=== PATIENT | female | born 1960 | race Caucasian/White ===

== ENCOUNTER 2018-05-15 14:17 | Outpatient (CLI) | payer BC, SELFPAY ==
--- NOTE | 2018-05-15 09:07 | DI.RAD_ITS ---
SYMPTOMS/DIAGNOSIS: LEFT HIP PAIN, ? DJD AP PELVIS: The frontal image reveals bilateral hip DJD, most advanced on the left side. There are also degenerative changes involving the SI joints and lower lumbar spine. There is no evidence of a fracture or dislocation.
== END 2018-05-15 14:37 ==
PROVIDERS: PCP Family Medicine; Visit Provider Orthopaedic Surgery
DX: M25.552 Pain in left hip (principal); M16.0 Bilateral primary osteoarthritis of hip
CPT/HCPCS: 72170

== ENCOUNTER 2018-05-22 01:10 | Outpatient (CLI) | payer BC, SELFPAY ==
--- NOTE | 2018-05-22 07:20 | DI.RAD_ITS ---
SYMPTOMS/DIAGNOSIS: DEGENERATIVE JOINT DISEASE, LEFT HIP, LEFT HIP PAIN, M16.12 , M25.552, UNILATERAL OSTEOARTHRITIS LEFT HIP FLUOROSCOPY: Fluoroscopy Time: 3 sec Fluoroscopy was provided for Dr. Lopez for guidance with left hip injection. A single hard copy image shows a needle projecting from the lateral aspect to the femoral neck region. Advanced degenerative changes are also noted. Please see procedure note for details.
--- NOTE | 2018-05-22 15:43 | ROE_ITS ---
DATE OF PROCEDURE: May 22, 2018 PRE-PROCEDURE DIAGNOSIS: Left hip pain, probably secondary to early degenerative arthritis left hip. POST-PROCEDURE DIAGNOSIS: Same. PROCEDURE: Injection of the left hip joint under fluoroscopy for diagnostic confirmation and for jacque n control. SURGEON: Inocencio Lopez M.D. [employer] SUPERVISOR: X-ray tech. INDICATIONS: This patient was seen by me in the office a week ago. She was complaining of left hip pain. She was having some difficulty putting her shoes and socks on on the left side and also clippi ng her own toenails, but she was able to accomplish that by placing her foot on a stool. X-rays in t he office showed narrowing of the joint space between the superior aspect of the left femoral head an d the acetabulum. There were some degenerative changes also noted on the right side but not as sever e. I felt that the majority of her symptoms are probably coming from arthritis of the left hip joint . I did not see any evidence of avascular necrosis on the radiographs to explain her symptoms. I re commended diagnostic/therapeutic injection under fluoroscopy to see if this could help with her sympt omatology and also verify that the source of her pain was coming from the hip joint. I re-reviewed t he planned procedure with the patient in the fluoroscopy suite. She understood and wished to proceed . PROCEDURE: She was placed in the supine position on the fluoroscopic table. The anterolateral aspec t of her thigh was prepped with ChloraPrep. 1% Lidocaine was then used to create an anesthetic wheal over the anterolateral thigh. Under fluoroscopic control, a 6-inch, 22 gauge spinal needle was inse rted into the left hip joint. The needle could be felt to penetrate the capsule and hit the femoral head. I then injected the hip joint with 5 cc's of 0.5% Marcaine and 80 mg of Depo-Medrol. The chadd ent noted immediate reduction in her pain. I caution her on a localized steroid reaction and I want her to pay attention to her symptomatology for the next five to twelve hours while the Marcaine is in effect. If she notices significant improvement in her overall function, then I think she would bene fit from a total hip arthroplasty; but the patient understands that this would have to be delayed for three months because there is an increased risk for infection in the initial three months following injection of the hip joint with a steroid. She tolerated the procedure well with no untoward side ef fects. She was able to put on her boot without any discomfort. She will contact the office in 48 to 72 hours and let me know how things are going. She is advised that if she does get some pain in the joint, this should respond to ibuprofen or Aleve or Tylenol and ice. Within 48 hours the steroid sh ould take effect and she should then notice again resumption of improved pain control.
== END 2018-05-22 01:30 ==
PROVIDERS: PCP Family Medicine; Visit Provider Orthopaedic Surgery
DX: M25.552 Pain in left hip (principal); M16.12 Unilateral primary osteoarthritis, left hip
CPT/HCPCS: 77002; 20610

== ENCOUNTER 2019-04-02 02:07 | Outpatient (CLI) | payer BC, SELFPAY ==
[2019-04-02 08:48] LABS: ALT 31 U/L (14-59); AST 20 U/L (15-37); Albumin 3.7 g/dL (3.4-5.0); Alkaline Phosphatase 114 U/L (46-116); Anion Gap 8.1 mmol/L (3-11); BUN 17 mg/dL (7-18); Bilirubin, Total 0.6 mg/dL (0.2-1.0); CO2 27.9 mmol/L (21.0-32.0); CREATININE 0.74 mg/dL (0.55-1.02); Calcium 8.6 mg/dL (8.5-10.1); Calculated LDL 118 mg/dL; Chloride 104 mmol/L (98-107); Cholesterol 203 mg/dL (50-200); Glucose 98 mg/dL (70-100); HDL Cholesterol 76 mg/dL (40-60); Potassium 4.2 mmol/L (3.5-5.1); Sodium 140 mmol/L (136-145); Triglyceride 47 mg/dL (30-150)
== END 2019-04-02 02:27 ==
PROVIDERS: PCP Family Medicine; Visit Provider Family Medicine
DX: E11.9 Type 2 diabetes mellitus without complications (principal)
CPT/HCPCS: 36415; 80053; 80061

== ENCOUNTER 2019-05-24 01:47 | Outpatient (CLI) | payer BC, SELFPAY ==
--- NOTE | 2019-05-24 11:07 | W.PROCNOTE ---
Date of service: 05/24/19 Time of Service: 11:07 Procedure Note Date of procedure: 05/24/19 Procedure: Left Hip Injection with Fluoroscopic Guidance Surgeon/Proceduralist/Physician: Michael Moctezuma Procedure Diagnosis: Left Hip Osteoarthritis Procedure Indications: Blossom has had persistent pain of the LEFT hip and groin. Noninvasive measures have been tried. To serve as both diagnostic and therapeutic, an injection under fluoroscopy was recommended. I had discussed the risks of the procedure and the patient elected to proceed. Procedure Description: Blossom was greeted in the flouroscopy room. The correct side was identified and the consent was reviewed with the patient and signed. The patient was then placed in the supine position on the fluoroscopy table. The LEFT hip was then prepped with Chloraprep. The anterolateral injection starting point was identiifed by bony landmarks and fluoroscopy. The skin and soft tissue in the tract of the injection was anesthetized with 1% Lidocaine. A spinal needle was then inserted deep into the hip joint at the level of the lateral femoral neck under fluoroscopic guidance. A small amount of Omnipaque solution was injected to confirm intraarticular placement. Once confirmed, the hip was injected with 6cc of 0.5% Bupivicaine and 80mg of Depo-Medrol. A bandaid was placed on the injection site. The patient tolerated the procedure well and noted improvement in pre-injection pain.
[2019-05-24] MEDS: Bupivacaine 0.5% Pres-Free 10 ML VIAL 6 ML IJ (11:19)
[2019-05-24] MEDS: Omnipaque 300 MG/ML 10 ML BTL IJ (11:20)
[2019-05-24] MEDS: methylPREDNISolone ACETATE 80 MG/ML VIAL IM (11:21)
--- NOTE | 2019-05-24 12:02 | DI.RAD_ITS ---
EXAM: RF JOINT INJECTION FLUORO GUID CLINICAL HISTORY: L HIP INJ UNDER FLUORO-PAIN, OA LT HIP, M16.12 TECHNIQUE: COMPARISON: No exams were available for comparison FINDINGS: Fluoroscopy was utilized by Dr. Moctezuma during left hip injection. Hard copy shows intra-articular injection of left hip IMPRESSION:
== END 2019-05-24 02:07 ==
PROVIDERS: PCP Family Medicine; Visit Provider Student in an Organized Health Care Education/Training Program
DX: M25.552 Pain in left hip (principal); M16.12 Unilateral primary osteoarthritis, left hip
CPT/HCPCS: 20610; 77002; J1040

== ENCOUNTER 2019-12-05 15:56 | Outpatient (CLI) | payer MEDICAID, SELFPAY ==
--- NOTE | 2019-12-05 09:00 | DI.RAD_ITS ---
EXAM: XR HIP LT COMPLETE AP PELVIS CLINICAL HISTORY: Left hip pain, pre-op. TECHNIQUE: 2D digital imaging was performed. COMPARISON: No exams were available for comparison FINDINGS: There are marked degenerative changes of the left hip characterized by loss of the superior joint spa ce, subchondral sclerosis and cysts and periarticular spurring. No acute fracture or dislocation is present. The bones are normally mineralized. The right hip is well maintained. Surgical clips are seen in the soft tissues of the pelvis. IMPRESSION: Marked osteoarthritis of the left hip. DATA REPOSITORY: RADIATION DOSE DELIVERED:
== END 2019-12-05 16:16 ==
PROVIDERS: PCP Family Medicine; Referring Provider Family Medicine; Visit Provider Physician Assistant Surgical
DX: M25.552 Pain in left hip (principal); M16.12 Unilateral primary osteoarthritis, left hip
CPT/HCPCS: 73502

== ENCOUNTER 2019-12-09 01:26 | Outpatient (CLI) | payer MEDICAID, SELFPAY ==
--- NOTE | 2019-12-09 13:30 | DI.MRI_ITS ---
EXAM: MR LOWER JOINT LT WO CLINICAL HISTORY: Left hip pain, abductor tendon weakness, primary OA of lt hip, M16.12. TECHNIQUE: Multiplanar multisequence MRI was performed. COMPARISON: CR XR HIP LT COMPLETE AP PELVIS from 12/05/2019 FINDINGS: There are severe degenerative changes of the left hip joint. There are multiple subchondral cysts on both sides of the joint. There is some collapse of the superior left femoral head. There is spurri ng at the lateral margin of the superior acetabulum. There is a small to moderate-sized left joint e ffusion. The right hip joint shows superior joint space narrowing and spurring at the superior aceta bulum. No right hip joint effusion is seen. The marrow signal of the right hip appears normal. The visualized portions of the SI joints as well as pubic symphysis are unremarkable. No tendon or musc le tear or bursal fluid is seen.There is symmetric generalized muscle atrophy. There is sigmoid div erticulosis. The bladder, uterus and ovaries are unremarkable. A surgical clip is seen in the low p quiana. IMPRESSION: Severe degenerative changes of the left hip with flattening of the femoral head and extensive subcho ndral cyst formation. DATA REPOSITORY:
== END 2019-12-09 01:46 ==
PROVIDERS: PCP Family Medicine; Visit Provider Student in an Organized Health Care Education/Training Program
DX: M25.552 Pain in left hip (principal); M16.12 Unilateral primary osteoarthritis, left hip; M71.352 Other bursal cyst, left hip
CPT/HCPCS: 73721

== ENCOUNTER 2019-12-17 01:06 | Outpatient (CLI) | payer MEDICAID, SELFPAY ==
[2019-12-17 08:54] LABS: Calculated LDL 138 mg/dL (<100); Cholesterol 229 mg/dL (<200); HDL Cholesterol 77 mg/dL (40-60); Triglyceride 72 mg/dL (<150)
== END 2019-12-17 01:26 ==
PROVIDERS: PCP Family Medicine; Visit Provider Family Medicine
DX: E11.9 Type 2 diabetes mellitus without complications (principal)
CPT/HCPCS: 36415; 80061

== ENCOUNTER 2019-12-24 01:31 | Outpatient (CLI) | payer MEDICAID, SELFPAY ==
--- NOTE | 2019-12-24 10:15 | DI.MAMMO_ITS ---
EXAM: MG MAMMO SCREENING CLINICAL HISTORY: screening, Z12.39 TECHNIQUE: Bilateral full field digital CC and MLO mammographic images were obtained with 3D tomosyn thesis and utilizing computer aided detection (CAD). COMPARISON: Available for comparison. FINDINGS: Masses/Architectural Distortion: None seen. Microcalcifications: No suspicious pleomorphic-type are seen. Skin Thickening/Nipple Retraction: None. IMPRESSION: 1. No significant interval change with no specific features of malignancy noted. 2. Unless there is more urgent need, screening mammography is recommended, as per [employer] guidelines. BI-RADS Category 1 - Negative Breast Density - Category B - Scattered areas of fibroglandular density A negative radiographic report should not delay biopsy if a dominant or clinically suspicious mass is present. Up to ten percent of cancers are not identified on mammography. A negative report may reinforce clinical impression. Adenosis and dense breasts may obscure an underlying neoplasm. False positive reports average 6 to 10%. Patient will receive a letter notifying them of these results.
== END 2019-12-24 01:51 ==
PROVIDERS: PCP Family Medicine; Visit Provider Family Medicine
DX: Z12.31 Encounter for screening mammogram for malignant neoplasm of breast (principal)
CPT/HCPCS: 77063; 77067

== ENCOUNTER 2020-01-10 03:03 | Outpatient (CLI) | payer MEDICAID, SELFPAY ==
[2020-01-10 09:47] LABS: HCT 39.1 % (36.0-46.0); Mean Corp. HGB Concentration 33.2 g/dL (32.0-36.0); Mean Corpuscular Hemoglobin 30.1 pg (27.0-33.0); Mean Corpuscular Volume 90.5 fL (80-95); Mean Platelet Volume 8.7 fL (8.0-11.0); Platelet Count 281 x1000/uL (130-400); RBC 4.32 m/cumm (4.00-5.20); RBC Distribution Width 13.1 % (11.7-14.6)
[2020-01-10 09:55] LABS: Anion Gap 9.3 mmol/L (3-11); BUN 18 mg/dL (7-18); CO2 27.7 mmol/L (21.0-32.0); CREATININE 0.81 mg/dL (0.55-1.02); Calcium 9.1 mg/dL (8.5-10.1); Chloride 102 mmol/L (98-107); Glucose 105 mg/dL (74-106); Potassium 4.3 mmol/L (3.5-5.1); Sodium 139 mmol/L (136-145)
[2020-01-12 17:23] LABS: COVID-19 RT-PCR Result NEGATIVE (Negative)
== END 2020-01-10 03:23 ==
PROVIDERS: PCP Family Medicine; Visit Provider Student in an Organized Health Care Education/Training Program
DX: M16.12 Unilateral primary osteoarthritis, left hip (principal); Z01.818 Encounter for other preprocedural examination; Z11.59 Encounter for screening for other viral diseases
CPT/HCPCS: 36415; 80048; 85027; 86850; 86900; 86901; U0003

== ENCOUNTER 2020-01-14 06:03 | Observation (INO) | payer MEDICAID, SELFPAY ==
--- NOTE | 2020-01-13 14:08 | INITIAL_ITS ---
- If Service Date Differs Date of service: 01/13/20 Time of Service: 14:09 Care Management Initial Assess REASON FOR HOSPITALIZATION:: Right hip anthroplasty. PAST MEDICAL HISTORY/PAST SURGICAL HISTORY:: Hyperlipidemia, primary osteoarthritis of left hip, primary osteoarthritis of right hip, primary osteoarthritis of right knee, insomnia, diabetes mellitus, and hypertension. PREVIOUS FUNCTIONAL STATUS/SOCIAL/FAMILY SUPPORTS:: Homero lives in [place] with her , Enrike. She has one cat but jokingly states he knows to stay away from her feet. Homero has 12 steps to get into her home but believes she will be able to negotiate them with the help of her . The plan is for Enrike to care for her while she recuperates from surgery. Homero is independent at baseline. CURRENT FUNCTIONAL STATUS:: CM contacts Homero by telephone to assess potential need for post-surgery services. ADVANCE DIRECTIVES:: None on file. Has patient been provided with info about the portal/API?: Yes Did the patient sign up for the portal?: Yes (Previously enrolled.) CODE STATUS:: Full Code INSURANCE COVERAGE / FINANCIAL ISSUES:: Medicaid. CURRENT HOME/COMMUNITY SERVICES/EQUIPMENT:: Shower chair and walker. No in-home or community services currently. PRIMARY CARE PHYSICIAN:: Lexa Larios DO ([facility]) POTENTIAL DISCHARGE NEEDS:: Follow-up appointments with PCP and with Dr. Moctezuma and outpatient physical therapy. PATIENT/FAMILY EDUCATION NEEDS:: Discharge instructions, limitations, and follow-up plan of care, including Ask Me Three and self-management. ANTICIPATED BARRIERS TO DISCHARGE:: None at this time. TRANSPORTATION:: Via private vehicle with , Enrike. PLAN:: Anticipate Homero will return home when medically cleared by provider. She will follow-up with Dr. Moctezuma, her PCP, outpatient physical therapy, and plan of care as directed. Her , Enrike, will drive her home via private vehicle when ready.
[2020-01-14] VITALS (12 sets, daily range): BP systolic 109–178; BP diastolic 86–122; PULSE 54–81; RESP 14–20; TEMP 36.1–36.5; O2SAT 94–100
[2020-01-14] MEDS: Celecoxib 200 MG CAP 400 MG PO (06:39)
[2020-01-14] MEDS: Acetaminophen 500 MG TAB 1000 MG PO ×2 (06:39→13:56)
[2020-01-14] MEDS: Lactated Ringers 1,000 ML 80 ML IV (06:52)
--- NOTE | 2020-01-14 07:15 | DI.RAD_ITS ---
EXAM: XR HIP LT IN OR CLINICAL HISTORY: OSTEOARTHRITIS LEFT HIP TECHNIQUE: 2D and realtime digital imaging was performed. CONTRAST MATERIAL: Refer to procedure report. COMPARISON: No exams were available for comparison FINDINGS: Fluoroscopy was provided for Dr. Moctezuma during the performance of a left hip arthroplasty. Please refer to the procedure report for complete details. Fluoro time: 36.2 seconds IMPRESSION:
[2020-01-14] MEDS: ceFAZolin 2 GM/50 ML BAG IVPB (08:20)
[2020-01-14] MEDS: Bupivacaine 0.25% Pres-Free 30 ML VIAL (08:50)
[2020-01-14] MEDS: Ketorolac 30 MG/ML VIAL (08:50)
--- NOTE | 2020-01-14 10:31 | W.PM.OP ---
Date of service: 01/14/20 Time of Service: 10:31 Operative Note Operative Note DATE OF PROCEDURE: 01/14/20 PRE-OP DIAGNOSIS: Left Hip Osteoarthritis POST-OP DIAGNOSIS: same PROCEDURE: Left Anterior Total Hip Arthroplasty SURGEON: Michael Moctezuma [employer] SOCIAL WORKER: Evy Martinez ANESTHESIA: spinal ESTIMATED BLOOD LOSS: 300 PATHOLOGY: none sent COMPLICATIONS: None Patient was transported to: PACU Patient's condition: stable Implants: 1. Depuy Plymouth Acetabular Component, 54mm 2. Depuy Acetabular Liner, [id number] 3. Depuy Corail Standard 125 Collared Femoral Stem, Size 10 4. Depuy Altrx Ceramic Femoral Head, Size 36+5mm Indications: I have seen Homero in clinic for symptoms of hip arthritis, confirmed with radiographic findings. Homero has exhausted nonoperative methods and was having significant limitations in daily function and desired better function and less pain. I discussed the technical details of a hip replacement. I explained the risks of the procedure to include, but not limited to, bleeding, infection, pain, stiffness, fracture, damage to nerves and vessels, damage to muscles and tendons, loosening, instability, leg length inequality, need for repeat procedure, blood clot and cardiopulmonary demise. Despite these risks, Homero elected to proceed. Findings: There was significant signs of arthritis throughout the hip. Large osteophytes were encountered around the femoral neck. Procedure Description: Homero was greeted in the preoperative holding area where the correct side was identified and marked. The consent was reviewed with the patient and signed. The history and physical was updated. All questions were answered. Homero was taken back to the operating room. A spinal anesthestic was then administered. The patient was placed into the supine position on the operating room table. The patient was then positioned onto the ARCH table. Both feet were wrapped with Webrill cotton wrap along with Coban. The feet were placed in specialized boots for the ARCH table, well seated within the boot and secured. SCDs were applied. The patient was then slid down onto a peroneal post and the nonoperative leg was secured in a leg muller attached to the table. The operative side was placed into the ARCH table attachment and bed height and positioning was secured. A preoperative AP pelvis was obtained to serve as a reference for determining leg lengths. Prophylactic antibiotics in the form of Cefazolin were administered. 1g of Tranxemic Acid was given intravenously within 30 minutes of incision. The left leg was then prepped with Chloraprep and draped in a standard fashion. A second prep with Chloraprep was performed prior to placement of a shower-curtain type drape with Iodine impregnated skin protection. A timeout to confirm correct identity, side and site, procedure, allergies, anesthesia, and medical concerns was performed. An obliquely oriented incision was made starting lateral to the ASIS and running distal over the Tensor Fascia Belkis (TFL) muscle belly toward the fibular head, approximately 10cm. The skin and soft tissue was dissected sharply, through Pamela?s fascia, and to the fascia of the TFL. With the fascia and superior border of the IT band identified, the fascia was incised with a new knife just above any perforators from the IT band. The TFL muscle belly was bluntly dissected away from the fascia and moved laterally. The fat between TFL and rectus was identified to ensure the dissection was not within the TFL. Blunt dissection created space between abductors and the capsule and retractor was placed over the lateral femoral neck. The fibers of the rectus femoris tendon were identified and these were freed from the anterior capsule. A second cobra retractor was placed around the medial femoral neck. The TFL was further retracted laterally to show the deep fascia. Careful dissection through this layer identified three main crossing vessels of the lateral femoral circumflex. These were cauterized in multiple locations and then cut without any noticeable bleeding. The TFL was further released bluntly from the deep fascia to expose anterior hip capsule and fat The Ezekiel orthopaedic retractor was then placed beneath the TFL and against sartorius and medial soft tissues to protect and retract the soft tissues. A T-capsulotomy was then performed starting at the superior lateral acetabulum and moving distally to the intertrochanteric ridge. These capsular flaps were tagged with a No. 1 Ethibond and elevated from within. The capsular flaps were released to the shoulder of the lateral neck and to the lesser trochanter to give excellent visualization of the proximal femur. A neck osteotomy was performed using an oscillating saw based on preoperative templates. This cut started in the shoulder and of the lateral neck and exited medially. The saw was at all times directed medially to avoid injury to the greater trochanter. 6cm of traction was applied to the leg and the osteotomy opened. The femoral head was removed with a corkscrew, making sure to protect the TFL on its exit. This was measured on the back table to determing the starting reamer size. Portions of the rectus obscuring visualization were minimally elevated off the superior acetabulum. An anterior retractor was placed over the anterior wall between capsule and labrum and attached to the Gripper retraction system. A posterior retractor was placed similarly. This provided excellent visualization. The contents of the cotyloid fossa were removed with electrocautery and the labrum was removed with a knife. There was a notable floor osteophyte. There was significant chondromalacia of the superior acetabulum. Acetabular reaming began with a 50mm reamer. This first reaming was directed anterior to posterior and medial to get down to the true floor. This was inspected and reamed until the true floor was reached. The anterior retractor was then released and entry and exit was provided by traction on the capsular flaps. I then reamed sequentially up to a 54mm reamer where good fit was obtained. The larger reamers were oriented based on anatomical reference of the anterior and lateral aldrich to ensure proper abduction and anteversion. Positioning and size was confirmed with the fluoroscopy. A 54mm Depuy Plymouth acetabular component was selected. The acetabulum was reamed around the periphery with the selected acetabular size to prevent a rim fit. The deep tissues were irrigated. The acetabular component was then impacted in a position of about 40-45 degrees of abduction and 15-20 degrees of anteversion, using the patient?s anatomy as the ultimate landmark. Fluoroscopy was used to confirm this. There was excellent blocker metal base of the acetabular component and the inserting handle was removed. The acetabular liner, Depuy [id number] polyethylene liner, was inserted and lined up with the tines of the acetabular component. There was no soft tissue interposition. The liner was then impacted into position and confirmed to be well-seated. A portion of the cecil-articular cocktail was then injected around the acetabulum into the capsule and periosteum. This cocktail consisted of 50cc of 0.25% Bupivicaine and 20cc of Exparel, expanded to a total of 120cc. Traction was released from the femur. The leg was rotated to 120 degrees. Any remaining medial capsule was released until the lesser trochanter was easily palpable. A Alba retractor was placed medially. The lateral capsule was further released into the shoulder to allow access to the greater trochanter. A Alba retractor was placed over the greater trochanter which allowed the trochanter to flip in front of the capsule for excellent exposure. The leg was brought down into maximal extension and 20 degrees of adduction while ensuring there was no impingement on the acetabulum. Any remnant capsule within the trochanter was released. Piriformis and obturator externis were identified and protected. There was excellent access to the proximal femur. The lateral neck remnant was removed with a rongeur. A blunt canal probe was used to identify the canal and trajectory for later broaching. A box osteotome initiated the broach course. A small curved rasp and a curved curette were used to work laterally. Broaching then began with a size 8 Corail broach. This was inserted manually around the trochanter and into the canal before mallet blows. The broach was seated to a few millimeters below the cut level based on the neck cut and the preoperative template. Sequential broaching was continued with the Crovat pneumatic broaching device until a tight fit was obtained with good rotational control of the femur. A trial standard 135 neck was inserted along with a +1.5 trial head. The leg was brought out of extension and adduction and then reduced with traction and internal rotation. The leg was stable anteriorly in a position of 30 degrees of extension and 90 degrees of external rotation. Fluoroscopy was used to ensure there was no fracture and the stem was seated well. Leg lengths were checked with an AP pelvis and pelvic reference points. Enjoi navigation system was used to confirm appropriate positioning and leg length and offset. This gave slightly too much leg length and not enough offset, but based on the table, the 125 standard and +5 head would give appropriate length and offset. Once content with the desired offset and leg lengths, the leg was brought back into extension, external rotation and adduction. The periosteum and surrounding tissue was injected with remaining portion of the cecil-articular cocktail. The proximal femur was irrigated as well as the deep tissues. The Depuy Corail standard 125 collared stem, size 10, was then manually inserted into the proximal femur making sure to control rotation. It was then malleted into position with light blows, giving breaks to allow bone expansion and decrease risk of fracture. The selected Depuy Altrx Ceramic Head, size 36+5mm, was then placed onto the clean and dry trunnion and secured with impaction onto the tapered fit. The leg was brought back out of extension and adduction and reduced with traction and internal rotation. Stability was confirmed with no shuck at 90 degrees of external rotation and 30 degrees of extension. No impingement through range of motion arc. Final x-ray images were obtained with fluoroscopy to confirm adequate positioning and no intraoperative fracture. The deep tissues were thoroughly irrigated with Irrisept chlorhexadine solution. The second dose of TXA 1g was administered intravenously.The capsule was then reapproximated with the previously placed Ethibond sutures. The TFL fascia was finally closed with a No. 2 Stratafix, barbed suture. Deep tissues were then reapproximated with 0 Vicryl and a running 2-0 Vicryl. The skin was closed with a running 4-0 Monocryl in a subcuticular fashion. This was reinforced with skin glue. A Mepilex silver dressing was applied. At the end of the case, all counts were correct. Homero was transferred to the hospital bed without difficulty and suffering no apparent complication. Homero has a good prognosis. Physical therapy will start today and without restrictions, weight-bearing as tolerated. Aspirin 81mg BID will be used for DVT prophylaxis.
[2020-01-14] MEDS: fentaNYL 100 MCG/2 ML VIAL IVP (11:05)
[2020-01-14] MEDS: Normal Saline Flush 10 ML SYR IV (11:05)
--- NOTE | 2020-01-14 11:41 | PT.INIE ---
Date of service: 01/14/20 Time of Service: 11:41 PT Notes Physical Therapy Inpatient Initial Evaluation Date: 01/14/2020 Referring Doctor: Michael Moctezuma MD PT Orders: PT CONSULT: S/P Ortho surgery Precautions: Fall. Standard. WBAT on L LE. Patient Profile/Admitting Diagnosis: Homero is a 59-year-old female with primary unilateral osteoarthritis of the L hip S/P R total hip arthroplasty on postoperative day 0. PMHX: Medical History DJD (degenerative joint disease) Essential hypertension Hyperlipidemia (Acute) Insomnia (Acute) Primary osteoarthritis of left hip (Chronic) Injection under fluoroscopy: 05/22/2018 Primary osteoarthritis of right hip (Chronic) Primary osteoarthritis of right knee (Chronic) Surgical History S/P colonoscopy (Acute) Tonsillectomy and adenoidectomy Social History/Home Situation: Lives alone in a private home with 12 steps to enter, rails on B sides. I with all aspects of ADLS without and assistive ambulatory device nor adaptive equipment. Took the whole year this year to rest and not work. Drives. Equipment Owned/DME: FWW, S[facility] Subjective: Reports stiffness in the L knee that subsided with walking. Indicated some sensitivity to the L hip but very little pain. Objective: General Observation: IV in the L UE. Bilateral TEDS on. Cold pack on L hip. Mepilex Ag over surgical incision. Mental Status: Alert and oriented x 4 Pain: 1/10 in L hip Vital Signs: WNL as closely monitored by nursing staff before and immediately after PT consult ROM: Right Upper Extremity: Shoulder Flexion WFL. Shoulder abduction WFL. Elbow flexion WFL. Wrist flexion WFL. Opening and closing of hand WFL. Left Upper Extremity: Shoulder Flexion WFL. Shoulder abduction WFL. Elbow flexion WFL. Wrist flexion WFL. Opening and closing of hand WFL. Right Lower Extremity: Hip flexion WFL. Hip abduction WFL. Knee flexion WFL. Ankle dorsiflexion WFL. Ankle plantarflexion WFL. Left Lower Extremity: Hip flexion WFL. Hip abduction WFL. Knee flexion WFL. Ankle dorsiflexion WFL. Ankle plantarflexion WFL. Strength: Right Upper Extremity: Shoulder flexors 5/5. Shoulder abductors 5/5. Elbow flexors 5/5. Elbow extensors 5/5. Pipe Organ Installer strong. Left Upper Extremity: Shoulder flexors 5/5. Shoulder abductors 5/5. Elbow flexors 5/5. Elbow extensors 5/5. Pipe Organ Installer strong. Right Lower Extremity: Hip flexors 5/5. Hip abductors 5/5. Knee flexors 5/5. Knee extensors 5/5. Ankle dorsiflexors 5/5. Ankle plantarflexors 5/5. Left Lower Extremity:Hip flexors 4/5. Hip abductors 4/5. Knee flexors 5/5. Knee extensors 5/5. Ankle dorsiflexors 5/5. Ankle plantarflexors 5/5. Sensation: Intact as to pain and pressure on bilateral lower extremities. Bed Mobility/Transfers: Supine to sit independent Sit to stand SBA Stand to sit SBA Bed to chair SBA Chair to bed SBA Gait: 250 feet with FWW with CGA, IV pole management, and wheelchair follow. WBAT on L LE. Step-through gait pattern. Decreased rhiannon. Balance: Static Sitting: Normal Dynamic Sitting: Normal Static Standing: Fair Dynamic Standing: Fair Special Tests: Mobility Limitations Standardized Measure [facility] AM-PAC 6 clicks Basic Mobility Inpatient Short Form: Raw Score: 23 CMS Score: 11% deficit Informed Consent/Education: Patient instructed in purpose of PT consult and plan of care. Assessment: Homero demonstrates functional mobility decline requiring the use of FWW for all mobility ADL performance, difficulty with walking, and weakness to L hip major muscle groups due to postoperative status. Homero is a 59-year-old female with primary unilateral osteoarthritis of the L hip S/P R total hip arthroplasty on postoperative day 0. Patient presents with clinical signs and symptoms consistent with current/admitting diagnoses that have resulted to mobility limitations, gait instability, generalized weakness, and impairment of motor control as demonstrated by the following impairment level findings: 1. Decreased strength to R hip major muscle groups 2. Impaired standing balance 3. Impaired activity tolerance Impairments are contributing to the following functional limitations: 1. Inability to safely ambulate without assistive device and physical assistance 2. Increase completion time for mobility ADL performance 3. Increased fall risk 4. Inability to negotiate steps alone safely Patient is assessed as a 67615 moderate complexity based on the following: History: 59-year-old female with impairment level findings, functional limitations, and past medical history as indicated above Examination: Demonstrable impairment in strength, balance, and mobility level with underlying impairments and functional limitations as documented above Presentation: Evolving Decision Makin moderate complexity Goals: After 1 more session today 1. Homero will demonstrate safe performance of stair negotiation with supervision x 10 steps while holding onto B rails fro safety before discharge this afternoon. 2. Homero will demonstrate level surface ambulation of 260 feet using FWW with supervision prior to discharge to home this afternoon Plan of Care/Treatment Plan: Patient will be seen 1 more time this afternoon to achieve above goals prior to discharge to home. Plan of care has been reviewed with the AUTOMOTIVE LEASING SALES REPRESENTATIVE providing the service under Physical Therapy direction. Initiate Physical Therapy intervention for strengthening, bed mobility, transfers, gait, stairs, balance training, use of assistive device. DISCHARGE RECOMMENDATIONS: Home whne medically cleared. OP PT as deemed appropriate by orthopedic surgeon. TREATMENT CODE/TIME: 20320 x 25 minutes, 04597 x 14 minutes beginning at 11:41 AM. Thank you for the opportunity to participate in the care of this patient. Narda Peoples PT, DPT, CLT [facility] [place], [place]
--- NOTE | 2020-01-14 14:08 | W.PM.DS.N ---
Date of service: 01/14/20 Time of Service: 14:08 DS: Diagnosis Discharge Diagnosis (1) Primary osteoarthritis of left hip: Status: Chronic Discharge Plan Disposition Patient Disposition: HOME Condition: Good Discharge Details Reason For Visit: LEFT HIP DJD Admit Date/Time: 01/14/20 06:03 Admit Provider: Michael Moctezuma Attending Provider: Michael Moctezuma [facility] [place] Hospital Course: Patient was admitted to the medical/surgical floor following the procedure. The surgery was tolerated well without any notable medical, surgical, or anesthetic complications. Mobilization began postoperatively. Homero was voiding spontaneously. Vitals were stable. Physical therapy worked with the patient and was cleared for discharge home. No acute medical issues. Pain was controlled on oral regimen. Home Meds and New Rx's Prescriptions: New aspirin 81 mg tablet,delayed release (DR/EC) 81 mg PO BID Qty: 60 RF: 0 acetaminophen 500 mg tablet 1,000 mg PO Q8H PRN (Reason: pain) Qty: 90 RF: 3 pantoprazole 40 mg tablet,delayed release (DR/EC) 40 mg PO DAILY Qty: 30 RF: 0 docusate sodium [Colace] 100 mg capsule 100 mg PO BID PRNQty: 10 RF: 0 ibuprofen 600 mg tablet 600 mg PO TID PRNQty: 90 RF: 3 oxycodone 5 mg tablet 5 mg PO Q4H Qty: 12 RF: 0 Continued lisinopril 10 mg tablet 40 mg PO DAILY RF: 0 alcohol swabs [Alcohol Wipes] 1 EACH pads, medicated 1 ea Topical DAILY 30 Days Qty: 1 RF: 6 (DME) lancets 1 EACH misc 1 ea Miscellaneous DAILY Qty: 100 RF: 12 metformin 500 mg tablet 500 mg PO BID Qty: 180 RF: 3 multivitamin 1 EACH capsule 1 ea PO DAILY RF: 0 Hijkuenydde-Nzghe-OFW Complex 1 EACH tablet 1 ea PO DAILY RF: 0 Tumeric 300 mg 1 tab PO DAILY RF: 0 Discontinued pantoprazole [Protonix] 20 mg tablet,delayed release (DR/EC) 20 mg PO DAILY Qty: 30 RF: 1 tramadol 50 mg tablet 50 mg PO Q6H PRN (Reason: pain) Qty: 12 RF: 0 Discharge Instructions Additional Instructions: Dr. Moctezuma's Total Hip Discharge Instructions Activity: The most important activity is to walk. You should try to take short walks a few times a day. You have no restrictions on movement or positioning, but do not try to force what you do. You will find some stiffness and weakness with hip flexion (lifting your knee). Do not try to strengthen this too early, continue to practice walking and stairs and this will come. - Outpatient physical therapy can be helpful to help return you to a normal gait and improve your flexibility and strength. This can start around 2 weeks. For most patients, it?s not necessary. Usually this is determined at the time of discharge or at the first post-operative visit. - You should wear the JUDY hose on both legs for 2 weeks. You may remove those at night. These prevent blood pooling and swelling. Dressing: Keep the surgical dressing in place for at least one week, although it may stay in place untill follow-up. It may get wet after 3 days but avoid soaking the dressing. If it gets wet, just lightly pat dry. Most people prefer to cover the dressing with some ClingWrap, Saran Wrap, to keep it dry. After the first week it may be removed if desired and then replaced with light gauze and tape or nothing. It is important to always keep some gauze or the dressing between skin folds, especially when you are sitting, so the incision is not folded over on itself at the belly fold. Medications: - You should take Tylenol and an anti-inflammatory Ibuprofen as your primary pain control medications - You have been prescribed a stronger pain medication Oxycodone for breakthrough pain, take as needed as prescribed. - You have also been prescribed a stomach acid reduction agent Pantoprozole to help reduce stomach acid and reflux. - You will be taking Aspirin 81mg twice a day for DVT prevention unless instructed otherwise. - If you have constipation you should take Colace or Miralax (both [id number]). It takes most people 3-4 days to have a bowel movement. Follow-up: 2 weeks. If you have any acute concerns or questions, please do not hesitate to contact the office at [phone]. You may contact Dr. Moctezuma with any questions after hours through the hospital at [phone] or on his cell phone at [phone]. Referrals: Michael Moctezuma MD [ [facility] STAFF PHYSICIAN] - Activity:: Activity as Tolerated Equipment/Supplies:: Walker Diet:: As Tolerated Discharge Orders Discharge Orders: Discharge Order (Routine); Ordered 01/14/20 Ordered By: Michael Moctezuma DS: Summary Status at Discharge Functional status at discharge: uses cane/walker Overall status at discharge: patient is progressing back to baseline Mental Status: mental status grossly normal Speech and Movement: speech and movement normal Mood: congruent mood Affect: normal affect Exam Psych Mental Status: mental status grossly normal Speech and Movement: speech and movement normal Mood: congruent mood Affect: normal affect DS: Data Vitals/I&O Vitals and I&O: Vital Signs Temperature 36.2 C L 01/14/20 13:58 Temperature Source Tympanic 01/14/20 13:58 Pulse 81 01/14/20 13:58 Pulse Rhythm Regular 01/14/20 11:27 Respiratory Rate 18 01/14/20 13:58 Respiratory Effort Non-Labored 01/14/20 11:27 Respiratory Depth Normal 01/14/20 11:27 Respiratory Pattern Normal 01/14/20 11:27 Blood Pressure 160/102 H 01/14/20 13:58 Pulse Oximetry 98 01/14/20 13:58 Respiratory End-tidal CO2 33 01/14/20 11:15 Oxygen Delivery Method Room Air 01/14/20 13:58 Oxygen Flow Rate 0 01/14/20 13:58 Pain Level 3 01/14/20 13:58 Intake & Output 01/13/20 01/14/20 01/14/20 23:59 11:59 23:59 Intake Total 890 / 890 Output Total 300 / 300 Balance 590 / 590 Weight 99.5 kg Intake: IV 720 / 720 Oral 170 / 170 Output: Estimated Blood Loss 300 / 300 Other: Emesis Description None COUNTS INCLUDE 234 BEDS AT THE [facility] Medical History DJD (degenerative joint disease) Essential hypertension Hyperlipidemia (Acute) Insomnia (Acute) Primary osteoarthritis of left hip (Chronic) Injection under fluoroscopy: 05/22/2018 Primary osteoarthritis of right hip (Chronic) Primary osteoarthritis of right knee (Chronic) Surgical History S/P colonoscopy (Acute) Tonsillectomy and adenoidectomy Family History Mother , lung ca at age 62. 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
--- NOTE | 2020-01-14 15:16 | PT.INTREAT ---
Date of service: 01/14/20 Time of Service: 15:16 PT Notes Visit Reasons: LEFT HIP DJD Inpatient Physical Therapy Treatment Note [facility] Date: 01/14/20 PRECAUTIONS: Fall, Enteric Prec SUBJECTIVE: Homero is excited to be going home this afternoon. OBJECTIVE: PAIN: No c/o pain BED MOBILITY/TRANSFERS Sit-stand: I Stand-sit: I GAIT: Assistive Device: FWW Weight Bearing: WBAT L Assist: Close SBA Distance: 260' Deviation: Step-through STAIRS: Up/down 9x4 and 6x6 using B rails and a step-to pattern with supervision ASSESSMENT: Patient tolerated session well. She would benefit from continued global strengthening for improved mobility. PLAN: As per primary PT TREATMENT CODE/TIME: 10 minutes; [id number]
--- NOTE | 2020-01-17 18:20 | INDS_ITS ---
Date of service: 01/17/20 PT Notes Visit Reasons: LEFT HIP DJD Inpatient Physical Therapy Discharge Summary Dates: 01/17/2020 Dates of Service: 01/14/2020 only This is a clinical summary of care provided on the duration of dates listed above. No charge was made in the completion of this documentation. Referring Doctor: Michael Moctezuma MD PT Orders: PT CONSULT: S/P Ortho surgery Precautions: Fall. Standard. WBAT on L LE. Patient Profile/Admitting Diagnosis: Homero is a 59-year-old female with primary unilateral osteoarthritis of the L hip S/P R total hip arthroplasty on postoperative day 0. PMHX: Medical History DJD (degenerative joint disease) Essential hypertension Hyperlipidemia (Acute) Insomnia (Acute) Primary osteoarthritis of left hip (Chronic) Injection under fluoroscopy: 05/22/2018 Primary osteoarthritis of right hip (Chronic) Primary osteoarthritis of right knee (Chronic) Surgical History S/P colonoscopy (Acute) Tonsillectomy and adenoidectomy Social History/Home Situation: Lives alone in a private home with 12 steps to enter, rails on B sides. I with all aspects of ADLS without and assistive ambulatory device nor adaptive equipment. Took the whole year this year to rest and not work. Drives. Equipment Owned/DME: [employer] Subjective: NT. See most recent CARDIAC REHABILITATION SPECIALIST notes. Objective: General Observation: NT. See most recent CARDIAC REHABILITATION SPECIALIST notes. Mental Status: NT. See most recent CARDIAC REHABILITATION SPECIALIST notes. Pain: NT. See most recent CARDIAC REHABILITATION SPECIALIST notes. Vital Signs: NT. See most recent CARDIAC REHABILITATION SPECIALIST notes. ROM: Right Upper Extremity: Shoulder Flexion WFL. Shoulder abduction WFL. Elbow flexion WFL. Wrist flexion WFL. Opening and closing of hand WFL. Left Upper Extremity: Shoulder Flexion WFL. Shoulder abduction WFL. Elbow flexion WFL. Wrist flexion WFL. Opening and closing of hand WFL. Right Lower Extremity: Hip flexion WFL. Hip abduction WFL. Knee flexion WFL. Ankle dorsiflexion WFL. Ankle plantarflexion WFL. Left Lower Extremity: Hip flexion WFL. Hip abduction WFL. Knee flexion WFL. Ankle dorsiflexion WFL. Ankle plantarflexion WFL. Strength: Right Upper Extremity: Shoulder flexors 5/5. Shoulder abductors 5/5. Elbow flexors 5/5. Elbow extensors 5/5. Alumni Relations Manager strong. Left Upper Extremity: Shoulder flexors 5/5. Shoulder abductors 5/5. Elbow flexors 5/5. Elbow extensors 5/5. Alumni Relations Manager strong. Right Lower Extremity: Hip flexors 5/5. Hip abductors 5/5. Knee flexors 5/5. Knee extensors 5/5. Ankle dorsiflexors 5/5. Ankle plantarflexors 5/5. Left Lower Extremity:Hip flexors 4/5. Hip abductors 4/5. Knee flexors 5/5. Knee extensors 5/5. Ankle dorsiflexors 5/5. Ankle plantarflexors 5/5. Sensation: Intact as to pain and pressure on bilateral lower extremities. Bed Mobility/Transfers: Supine to sit i independent Sit to stand independent Stand to sit independent Bed to chair independent Chair to bed independent Gait: 260 feet with FWW with SBA. WBAT on L LE. Step-through gait pattern. Decreased rhiannon. Balance: Static Sitting: Normal Dynamic Sitting: Normal Static Standing: Fair Dynamic Standing: Fair Special Tests: Mobility Limitations Standardized Measure [facility] 6 clicks Basic Mobility Inpatient Short Form: Raw Score: 23 CMS Score: 11% deficit Informed Consent/Education: Patient instructed in purpose of PT consult and plan of care. Assessment: Homero demonstrates functional mobility decline requiring the use of FWW for all mobility ADL performance, difficulty with walking, and weakness to L hip major muscle groups due to postoperative status. Homero is a 59-year-old female with primary unilateral osteoarthritis of the L hip S/P R total hip arthroplasty on postoperative day 0. Goals: After 1 more session today 1. Homero will demonstrate safe performance of stair negotiation with supervis ion x 10 steps while holding onto B rails fro safety before discharge this afternoon MET 2. Homero will demonstrate level surface ambulation of 260 feet using FWW with supervision prior to discharge to home this afternoon NOT MET DISCHARGE RECOMMENDATIONS: Home when medically cleared. OP PT as deemed appropriate by orthopedic surgeon. TREATMENT CODE/TIME: SD Thank you for the opportunity to participate in the care of this patient. Narda Peoples PT, DPT, CLT [facility] [place], [place]
== END 2020-01-14 15:59 | disposition home or self-care (01) ==
LOC: PDS 10:48 → MS 10:49
PROVIDERS: Admitting Provider Student in an Organized Health Care Education/Training Program; PCP Family Medicine; Visit Provider Student in an Organized Health Care Education/Training Program
PROC: 0SRB04A Replacement of Left Hip Joint with Ceramic on Polyethylene Synthetic Substitute, Uncemented, Open Approach (ICD-10-PCS; CPT 27130; principal; 2020-01-14 07:45)
DX: M16.12 Unilateral primary osteoarthritis, left hip (principal); Z96.642 Presence of left artificial hip joint; M25.552 Pain in left hip; I10 Essential (primary) hypertension; E11.9 Type 2 diabetes mellitus without complications; E66.01 Morbid (severe) obesity due to excess calories; Z68.38 Body mass index [BMI] 38.0-38.9, adult
CPT/HCPCS: 27130; C1776; 97162; 97530; NC; 73501; G0378; J0131; J0690; J1100; J1885; J2001; J2405; J3010

== ENCOUNTER 2020-01-30 11:36 | Outpatient (CLI) | payer MEDICAID, SELFPAY ==
--- NOTE | 2020-01-30 12:00 | DI.RAD_ITS ---
EXAM: XR HIP LT COMPLETE AP PELVIS CLINICAL HISTORY: 1st post op TECHNIQUE: COMPARISON: CR XR HIP LT COMPLETE AP PELVIS from 12/05/2019 FINDINGS: Three views were obtained. There is a total hip joint replacement in position. The components appea r well seated. No other significant bony abnormality seen. IMPRESSION:
== END 2020-01-30 11:56 ==
PROVIDERS: PCP Family Medicine; Referring Provider Family Medicine; Visit Provider Student in an Organized Health Care Education/Training Program
DX: Z96.642 Presence of left artificial hip joint (principal)
CPT/HCPCS: 73502

== ENCOUNTER 2020-12-01 03:36 | Outpatient (CLI) | payer MEDICAID, SELFPAY ==
[2020-12-01 08:40] LABS: Anion Gap 10.2 mmol/L (3-11); BUN 15 mg/dL (7-18); CO2 26.8 mmol/L (21.0-32.0); CREATININE 0.9 mg/dL (0.55-1.02); Calcium 8.9 mg/dL (8.5-10.1); Calculated LDL 162 mg/dL (<100); Chloride 105 mmol/L (98-107); Cholesterol 248 mg/dL (<200); Glucose 103 mg/dL (74-106); HDL Cholesterol 77 mg/dL (40-60); Potassium 4.4 mmol/L (3.5-5.1); Sodium 142 mmol/L (136-145); Triglyceride 46 mg/dL (<150)
== END 2020-12-01 03:37 | disposition home or self-care (01) ==
LOC: LBO 03:36
PROVIDERS: PCP Family Medicine; Visit Provider Family Medicine
DX: E11.9 Type 2 diabetes mellitus without complications (principal)
CPT/HCPCS: 36415; 80048; 80061

== ENCOUNTER 2020-12-04 10:57 | Outpatient (CLI) | payer MEDICAID, SELFPAY ==
--- NOTE | 2020-12-04 10:15 | DI.RAD_ITS ---
Exam(s) XR STANDING ALIGNMENT EXAM: XR STANDING ALIGNMENT CLINICAL HISTORY: right knee DJD. TECHNIQUE: 2D digital imaging was performed. COMPARISON: No exams were available for comparison FINDINGS: The patient has a left total hip replacement. There are mild degenerative changes of the right hip. In the left knee, there are moderately severe degenerative changes in the medial joint compartment w ith joint space narrowing and periarticular spurring. Mild periarticular spurring is seen in the lat eral femoral tibial joint. In the right knee, there are marked degenerative changes present. There is joint space narrowing, subchondral sclerosis and periarticular spurring. The distal femur is medi ally subluxed relative to the proximal tibia. Dystrophic calcification is seen at the patella. IMPRESSION: Marked right knee osteoarthritis. Moderately severe left knee osteoarthritis. DATA REPOSITORY: RADIATION DOSE DELIVERED:
--- NOTE | 2020-12-04 11:09 | DI.RAD_ITS ---
Exam(s) XR KNEE RT 1V EXAM: XR KNEE RT 1V CLINICAL HISTORY: right knee DJD. TECHNIQUE: 2D digital imaging was performed. COMPARISON: CR RIGHT KNEE LIMITED 1 OR 2 VIEW from 07/13/2017 FINDINGS: A single lateral view was performed. Severe degenerative changes of the femoral tibial joints as wel l as patellofemoral joint are again noted. IMPRESSION: Severe degenerative changes. DATA REPOSITORY: RADIATION DOSE DELIVERED:
== END 2020-12-04 10:58 | disposition home or self-care (01) ==
LOC: DIORS 10:58
PROVIDERS: PCP Family Medicine; Referring Provider Family Medicine; Visit Provider Physician Assistant
DX: M25.561 Pain in right knee (principal); M17.11 Unilateral primary osteoarthritis, right knee; Z96.642 Presence of left artificial hip joint; M16.11 Unilateral primary osteoarthritis, right hip
CPT/HCPCS: 73560; 77073

== ENCOUNTER 2020-12-14 02:42 | Outpatient (CLI) | payer MEDICAID, SELFPAY ==
[2020-12-14 12:05] LABS: Source Nasal/Nares
[2020-12-14 14:48] LABS: COVID-19 PCR Negative (Negative)
== END 2020-12-14 02:43 | disposition home or self-care (01) ==
LOC: LBO 02:42
PROVIDERS: PCP Family Medicine; Visit Provider Student in an Organized Health Care Education/Training Program
DX: Z20.822 Contact with and (suspected) exposure to COVID-19 (principal); Z01.818 Encounter for other preprocedural examination
CPT/HCPCS: 87635

== ENCOUNTER 2020-12-14 03:21 | Outpatient (CLI) | payer MEDICAID, SELFPAY ==
[2020-12-14 09:01] LABS: HCT 39.6 % (36.0-46.0); HGB 12.9 g/dL (11.2-15.7); MCH 29.4 pg (27.0-33.0); MCHC 32.6 % (32.0-36.0); MCV 90.2 fL (80-95); MPV 9.3 fL (8.0-11.0); Platelet Count 226 10^3/uL (130-400); RBC 4.39 10^6/uL (3.93-5.22); RDW 14.1 % (11.7-14.6); RDW-SD 47.2 fL; WBC 6.15 10^3/uL (4.4-10.8)
[2020-12-14 09:30] LABS: Hemoglobin A1C 5.6 % (<5.7)
[2020-12-14 10:01] LABS: Anion Gap 10.4 mmol/L (3-11); BUN 20 mg/dL (7-18); CO2 27.6 mmol/L (21.0-32.0); CREATININE 0.9 mg/dL (0.55-1.02); Calcium 8.8 mg/dL (8.5-10.1); Chloride 106 mmol/L (98-107); Glucose 101 mg/dL (74-106); Potassium 4.2 mmol/L (3.5-5.1); Sodium 144 mmol/L (136-145)
== END 2020-12-14 03:22 | disposition home or self-care (01) ==
LOC: LBO 03:21
PROVIDERS: PCP Family Medicine; Visit Provider Student in an Organized Health Care Education/Training Program
DX: M25.561 Pain in right knee (principal); M17.11 Unilateral primary osteoarthritis, right knee; E11.9 Type 2 diabetes mellitus without complications; I10 Essential (primary) hypertension; Z01.818 Encounter for other preprocedural examination; Z01.812 Encounter for preprocedural laboratory examination
CPT/HCPCS: 36415; 80048; 85027; 83036

== ENCOUNTER 2020-12-15 06:02 | Day surgery (SDC) | payer MEDICAID, SELFPAY ==
[2020-12-15] VITALS (7 sets, daily range): BP systolic 137–167; BP diastolic 85–108; PULSE 52–69; RESP 15–20; TEMP 36.2–36.4; O2SAT 97–98; BMI 40.8
--- NOTE | 2020-12-15 06:40 | W.ANESPRE ---
General Info Date of Service Date Performed: 12/15/20 Height: 5 ft 2.2 in Weight: 102.1 kg Body Mass Index (BMI): 40.8 Surgical Procedure: Operation Date: 12/15/20 07:40 Proposed Procedures Side Surgeon p Knee Total Arthroplasty Right Michael Moctezuma MD Meds Allergies and Home Medications Allergies Allergy/AdvReac Type Severity Reaction Status Date / Time No Known Allergies Allergy Verified 12/15/20 06:13 Home Medication Medication Instructions Recorded Wmtvsebahzh-Hfxxp-LMR Complex 1 ea PO DAILY 05/02/17 multivitamin 1 ea PO DAILY 05/02/17 alcohol swabs [Alcohol Wipes] 1 ea TOPICAL DAILY 30 Days #1 box 09/07/17 lancets #100 ea 09/07/17 ibuprofen 600 mg PO TID PRN #90 tab 01/14/20 atorvastatin 40 mg tablet 40 mg PO QHS #90 tab 12/08/20 lisinopril 10 mg tablet 10 mg PO DAILY #90 tab 12/08/20 metformin 500 mg tablet 500 mg PO BID #180 tab-cap 12/08/20 Current Visit Medications: Current Medications Generic Name Dose Route Start Last Admin Trade Name Freq PRN Reason Stop Dose Admin Acetaminophen 1,000 mg 12/15/20 06:00 Acetaminophen 500 Mg Tab PO 12/15/20 16:00 PREOP MARIA DE JESUS Celecoxib 400 mg 12/15/20 06:00 Celecoxib 200 Mg Cap PO 12/15/20 16:00 PREOP MARIA DE JESUS Gabapentin 300 mg 12/15/20 06:00 Gabapentin 300 Mg Cap PO 12/15/20 16:00 PREOP MARIA DE JESUS Tranexamic Acid 1,000 mg/ 60 mls @ 360 mls/hr 12/15/20 06:00 Sodium Chloride IVPB 12/15/20 16:00 PREOP MARIA DE JESUS Tranexamic Acid 1,000 mg/ 60 mls @ 360 mls/hr 12/15/20 06:00 Sodium Chloride IVPB 12/15/20 16:00 DIRECTED MARIA DE JESUS Ringer's Solution 1,000 mls @ 80 mls/hr 12/15/20 06:00 IV 01/13/21 23:59 INFUSION MARIA DE JESUS Cefazolin Sodium/Dextrose 2 gm in 50 mls @ 100 mls/hr 12/15/20 06:00 Ancef Duplex IVPB 12/15/20 16:00 PREOP MARIA DE JESUS IV Miscellaneous Supplies 1 each 12/15/20 06:00 Iv Access IV 01/13/21 23:59 DIRECTED MARIA DE JESUS Sodium Chloride 0 ml 12/15/20 06:00 Normal Saline Flush 10 Ml Syr IV 01/13/21 23:59 PRN PRN Sodium Chloride 0 ml 12/15/20 06:00 Normal Saline 10 Ml Vial IJ 01/13/21 23:59 DIRECTED PRN Sterile Water 0 ml 12/15/20 06:00 Water,Injection,Sterile 10 Ml Vial IJ 01/13/21 23:59 DIRECTED PRN PFSH Active Problems Active Problems: Problem Status Onset Code Status post left hip replacement Z96.642 Hyperlipidemia E78.5 Primary osteoarthritis of left hip M16.12 Primary osteoarthritis of right hip M16.11 Primary osteoarthritis of right knee M17.11 Insomnia G47.00 Diabetes mellitus E11.9 Hypertension 07/27/17 I10 Medical History Medical History DJD (degenerative joint disease) Essential hypertension Hyperlipidemia Insomnia Primary osteoarthritis of left hip Injection under fluoroscopy: 05/22/2018 Primary osteoarthritis of right hip Primary osteoarthritis of right knee Surgical History Surgical History S/P colonoscopy Status post left hip replacement Tonsillectomy and adenoidectomy Tobacco Smoking/Tobacco Use Status: Never Alcohol Alcohol Intake: current Alcohol intake frequency: a few times a week Alcohol type: wine Substance Use Substance use: Never Substance use type: does not use Vital Signs and Lab Results Vital Signs Most Recent Vital Signs in EMR: Most Recent Vital Signs Temp Pulse Resp BP Pulse Ox 36.4 C L 69 16 158/103 H 97 12/15/20 06:16 12/15/20 06:16 12/15/20 06:16 12/15/20 06:16 12/15/20 06:16 Lab Results Blood Type / Crossmatch: No Data to Display Complete Blood Count: White Blood Count 6.15 10^3/uL (4.4-10.8) 12/14/20 08:56 12/14/20 Red Blood Count 4.39 10^6/uL (3.93-5.22) 12/14/20 08:56 12/14/20 Hemoglobin 12.9 g/dL (11.2-15.7) 12/14/20 08:56 12/14/20 Hematocrit 39.6 % (36.0-46.0) 12/14/20 08:56 12/14/20 Platelet Count 226 10^3/uL (130-400) 12/14/20 08:56 12/14/20 Complete Metabolic Panel: Sodium Level 144 mmol/L (136-145) 12/14/20 08:56 12/14/20 Potassium Level 4.2 mmol/L (3.5-5.1) 12/14/20 08:56 12/14/20 Chloride Level 106 mmol/L (98-107) 12/14/20 08:56 12/14/20 Carbon Dioxide Level 27.6 mmol/L (21.0-32.0) 12/14/20 08:56 12/14/20 Blood Urea Nitrogen 20 mg/dL (7-18) H 12/14/20 08:56 12/14/20 Creatinine 0.9 mg/dL (0.55-1.02) 12/14/20 08:56 12/14/20 Estimated GFR/1.73 m2 >= 60.00 (mL/min/1.73m2) 12/14/20 08:56 12/14/20 Calcium Level 8.8 mg/dL (8.5-10.1) 12/14/20 08:56 12/14/20 Glucose Level 101 mg/dL (74-106) 12/14/20 08:56 12/14/20 Hemoglobin A1c 5.6 % (<5.7) 12/14/20 08:56 12/14/20 Liver Function Panel: No Data to Display Coagulation Panel: No Data to Display Cardiac Panel: No Data to Display Arterial Blood Gas: No Data to Display Venous Blood Gas: No Data to Display Pancreas Panel: No Data to Display Thyroid Panel: No Data to Display Infectious Disease: Coronavirus (COVID-19)(PCR) Negative (Negative) 12/14/20 08:58 12/14/20 Coronavirus 2019 Source Nasal/Nares 12/14/20 08:58 12/14/20 Blood Cultures: No Data to Display Toxicology Panel: No Data to Display Anesthesia Assessment and Plan Anesthesia History Personal History: No History of Anesthesia Complications Family History: No Family History of Anesthesia Complications Exercise Tolerance Exercise Tolerance: Metabolic Equivalents>4 Pertinent Negatives Pertinent Negatives: No Symptoms of GERD, No Major Cardiovascular Symptoms or Complaints (HTN, ), No Major Pulmonary Symptoms or Complaints, No History of CVA/TIA and Other Cardiac & Pulmonary Exam Cardiac Exam: Normal S1/S2 Heart Sounds Pulmonary Exam: Clear Bilateral Breath Sounds Airway Exam Known Difficult Airway: No Mallampati Class: 3 Mouth Opening: Narrow (< 3cm) Thyromental Distance: Greater than 3 cm Neck Range of Motion: Full ROM Neck Circumference: Normal Teeth Condition: Normal Dentition ASA Classification ASA Score: ASA 3 Emergency Case?: No NPO Status NPO Status: NPO Clears >2 hours, Solids >8 hours Anesthesia Plan Resuscitation Status: Full Code Anesthesia Technique: Spinal Anesthesia Airway Planned: Natural Airway Monitors Used: Standard Monitors Preoperative Comments:: Plan spinal and general LMA as back up
[2020-12-15] MEDS: Acetaminophen 500 MG TAB 1000 MG PO (06:47)
[2020-12-15] MEDS: Gabapentin 300 MG CAP PO (06:47)
[2020-12-15] MEDS: Celecoxib 200 MG CAP 400 MG PO (06:47)
[2020-12-15] MEDS: Lactated Ringers 1,000 ML 80 ML IV (06:53)
--- NOTE | 2020-12-15 07:35 | PDOC.DSDIS_ITS ---
Documented by User: CARITO Liz 12/16/20 08:04 Discharge Plan Disposition Patient Disposition: HOME Condition: Good Discharge Details Reason For Visit: Right TKA Attending Provider: Michael Moctezuma Primary Care Provider: Lexa Larios Home Meds and New Rx's Prescriptions: New acetaminophen 500 mg capsule 1,000 mg PO Q8H PRN PRNQty: 90 RF: 0 aspirin 81 mg tablet,delayed release (DR/EC) 81 mg PO BID Qty: 60 RF: 0 celecoxib 200 mg capsule 200 mg PO BID Qty: 60 RF: 0 gabapentin 300 mg capsule 300 mg PO QHS Qty: 14 RF: 0 oxycodone 5 mg capsule 5 mg PO Q4H PRNQty: 20 RF: 0 pantoprazole 40 mg tablet,delayed release (DR/EC) 40 mg PO DAILY Qty: 30 RF: 0 Continued atorvastatin 40 mg tablet 40 mg PO QHS Qty: 90 RF: 3 lisinopril 10 mg tablet 10 mg PO DAILY Qty: 90 RF: 3 metformin 500 mg tablet 500 mg PO BID Qty: 180 RF: 3 alcohol swabs [Alcohol Wipes] 1 EACH pads, medicated 1 ea Topical DAILY 30 Days Qty: 1 RF: 6 (DME) lancets 1 EACH misc 1 ea Miscellaneous DAILY Qty: 100 RF: 12 multivitamin 1 EACH capsule 1 ea PO DAILY RF: 0 Ejxburcsjra-Cjhpe-VCN Complex 1 EACH tablet 1 ea PO DAILY RF: 0 Discontinued ibuprofen 600 mg tablet 600 mg PO TID PRNQty: 90 RF: 3 Discharge Instructions Additional Instructions: Total Knee Discharge Instructions Activity: The most important activity is to walk. You should try to take short walks a few times a day. It is important that when resting you work on keeping the knee straight. Avoid putting a pillow behind the knee as this will encourage flexion. Work on range of motion exercises as provided by Physical Therapy. - Start outpatient physical therapy within 2 weeks. - You should wear the JUDY hose on both legs for 2 weeks. You may remove these at night. You may also use any compression sock in place of the JUDY hose. Dressing: You may remove the Donavon wrap on your leg 2 days after your surgery and put on the JUDY stocking given to you from the hospital. Keep the surgical dressing (underneath the DONAVON wrap) in place for at least one week. After the first week it may be removed and replaced with light gauze and tape or nothing. The wound and dressing may get wet after 3 days but avoid soaking the dressing or otherwise it will need to be changed. Many people prefer covering the dressing with cling wrap (saran wrap) to minimize it from getting soaked. If it gets wet, just pat dry. If it starts to peel off then it will need to be changed. Medications: - You should take Tylenol and anti-inflammatory Celebrex as your primary pain control medications. If the Celebrex is too expensive or not covered, please call the office for another alternative (Advil/Ibuprofen or Naproxen/Aleve) - You have been prescribed a stronger pain medication Oxycodone for breakthrough pain, take as needed as prescribed. - You have also been prescribed a stomach acid reduction agent Pantoprozole to help reduce stomach acid and reflux. - You have been prescribed Gabapentin to take at night for restlessness and nerve pain. - You will be taking Aspirin 81mg twice a day for DVT prevention unless instructed otherwise. - If you have constipation you should take Colace or Miralax (both [id number]). It takes most people 3-4 days to have a bowel movement. Follow-up: 2 weeks If you have any acute concerns or questions, please do not hesitate to contact the office at [phone]. You may contact Dr. Moctezuma with any questions after hours through the hospital at [phone] or on his cell phone at [phone]. Stand Alone Forms: Anesthesia Discharge Inst., Anes.Nerve Block Instructions Referrals: Michael Moctezuma MD [ [facility] STAFF PHYSICIAN] - Equipment/Supplies: Walker Activity:: Activity as Tolerated Shower/Bathe:: Cover Diet:: As Tolerated Discharge Orders Discharge Orders: Discharge Order (Routine); Ordered 12/15/20 Ordered By: Michael Moctezuma Discharge Data Discharge Date/Time-TO BE ENTERED AT DEPARTURE: 12/15/20 12:08 DS: Diagnosis Discharge Diagnosis (1) History of total right knee replacement (TKR): Status: Acute Documented by User: Michael Moctezuma MD 12/17/20 07:23 Discharge Plan Disposition Patient Disposition: HOME Condition: Good Discharge Details Reason For Visit: Right TKA Attending Provider: Michael Moctezuma Primary Care Provider: Lexa Larios Home Meds and New Rx's Prescriptions: New acetaminophen 500 mg capsule 1,000 mg PO Q8H PRN PRNQty: 90 RF: 0 aspirin 81 mg tablet,delayed release (DR/EC) 81 mg PO BID Qty: 60 RF: 0 celecoxib 200 mg capsule 200 mg PO BID Qty: 60 RF: 0 gabapentin 300 mg capsule 300 mg PO QHS Qty: 14 RF: 0 oxycodone 5 mg capsule 5 mg PO Q4H PRNQty: 20 RF: 0 pantoprazole 40 mg tablet,delayed release (DR/EC) 40 mg PO DAILY Qty: 30 RF: 0 Continued atorvastatin 40 mg tablet 40 mg PO QHS Qty: 90 RF: 3 lisinopril 10 mg tablet 10 mg PO DAILY Qty: 90 RF: 3 metformin 500 mg tablet 500 mg PO BID Qty: 180 RF: 3 alcohol swabs [Alcohol Wipes] 1 EACH pads, medicated 1 ea Topical DAILY 30 Days Qty: 1 RF: 6 (DME) lancets 1 EACH misc 1 ea Miscellaneous DAILY Qty: 100 RF: 12 multivitamin 1 EACH capsule 1 ea PO DAILY RF: 0 Hwcvdpbqzhv-Zxmku-HUE Complex 1 EACH tablet 1 ea PO DAILY RF: 0 Discontinued ibuprofen 600 mg tablet 600 mg PO TID PRNQty: 90 RF: 3 Discharge Instructions Additional Instructions: Total Knee Discharge Instructions Activity: The most important activity is to walk. You should try to take short walks a few times a day. It is important that when resting you work on keeping the knee straight. Avoid putting a pillow behind the knee as this will encourage flexion. Work on range of motion exercises as provided by Physical Therapy. - Start outpatient physical therapy within 2 weeks. - You should wear the JUDY hose on both legs for 2 weeks. You may remove these at night. You may also use any compression sock in place of the JUDY hose. Dressing: You may remove the Donavon wrap on your leg 2 days after your surgery and put on the JUDY stocking given to you from the hospital. Keep the surgical dressing (underneath the DONAVON wrap) in place for at least one week. After the first week it may be removed and replaced with light gauze and tape or nothing. The wound and dressing may get wet after 3 days but avoid soaking the dressing or otherwise it will need to be changed. Many people prefer covering the dressing with cling wrap (saran wrap) to minimize it from getting soaked. If it gets wet, just pat dry. If it starts to peel off then it will need to be changed. Medications: - You should take Tylenol and anti-inflammatory Celebrex as your primary pain control medications. If the Celebrex is too expensive or not covered, please call the office for another alternative (Advil/Ibuprofen or Naproxen/Aleve) - You have been prescribed a stronger pain medication Oxycodone for breakthrough pain, take as needed as prescribed. - You have also been prescribed a stomach acid reduction agent Pantoprozole to help reduce stomach acid and reflux. - You have been prescribed Gabapentin to take at night for restlessness and nerve pain. - You will be taking Aspirin 81mg twice a day for DVT prevention unless instructed otherwise. - If you have constipation you should take Colace or Miralax (both fxzq-[id number]). It takes most people 3-4 days to have a bowel movement. Follow-up: 2 weeks If you have any acute concerns or questions, please do not hesitate to contact the office at [phone]. You may contact Dr. Moctezuma with any questions after hours through the hospital at [phone] or on his cell phone at [phone]. Stand Alone Forms: Anesthesia Discharge Inst., Anes.Nerve Block Instructions Referrals: Michael Moctezuma MD [ [facility] STAFF PHYSICIAN] - Equipment/Supplies: Walker Activity:: Activity as Tolerated Shower/Bathe:: Cover Diet:: As Tolerated Discharge Orders Discharge Orders: Discharge Order (Routine); Ordered 12/15/20 Ordered By: Michael Moctezuma Discharge Data Discharge Date/Time-TO BE ENTERED AT DEPARTURE: 12/15/20 12:08
[2020-12-15] MEDS: ceFAZolin 2 GM/50 ML BAG IVPB (07:57)
[2020-12-15] MEDS: Ketorolac 30 MG/ML VIAL (08:45)
[2020-12-15] MEDS: Bupivacaine 0.25% Pres-Free 30 ML VIAL (08:45)
[2020-12-15] MEDS: Normal Saline 20 ML VIAL (08:45)
--- NOTE | 2020-12-15 09:01 | W.ANESNERVE ---
Nerve Block Single Injection Procedure Date and Time Date Performed: 12/15/20 Procedure Start: 07:34 Location Where Procedure Performed Procedure Location: PACU Reason Performed: Postoperative Analgesia Requesting Provider: Michael Moctezuma Timeout Performed Timeout Performed: Yes Monitoring Used ECG, Blood Pressure and SpO2 Sterility Sterility: Hand Hygiene, Surgical Cap, Surgical Mask, Sterile Gloves, Eye Protection and Chlorhexidine Sedation Given During Procedure Sedation Given (Indicate Dose Given): Versed IV Dose:: 2 mg Patient Mental Status Patient Mental Status: Sedate with meaningful communication Nerve Block 1st Nerve Block: Laterality: Right Block Type: Adductor Canal Needle / Catheter Used: 120mm SonoPlex II Local Anesthetic Bolus (Indicate Dose Given): Lidocaine used for local infiltration of skin, Injected in 3-5ml increments after negative blood aspiration and Bupivacaine 0.25% Dose:: 20 cc Additives (Indicate Dose Given): None Ultrasound: Sterile probe cover and gel used Ultrasound Image Saved?: Yes Nerve Stimulator: Not Used Paresthesia: None Procedure Tolerated: No Complications and Patient tolerated well Procedure Outcome: Successful Performed By: Donna Patel Supervised By: Enrike Schaeffer
--- NOTE | 2020-12-15 09:59 | W.PM.OP ---
Date of service: 12/15/20 Time of Service: 09:38 Operative Note Operative Note DATE OF PROCEDURE: 12/15/20 PRE-OP DIAGNOSIS: Right Knee Osteoarthritis POST-OP DIAGNOSIS: same PROCEDURE: Right Total Knee Replacement SURGEON: Michael Moctezuma SPOTLIGHT OPERATOR: Soto Daly ANESTHESIA TYPE: Spinal Refer to Anesthesia Record ESTIMATED BLOOD LOSS: 350 PATHOLOGY: none sent TOURNIQUET TIME: 0 COMPLICATIONS: None Patient was transported to: PACU Patient's condition: stable Implants: 1. Depuy Attune Cementless Posterior Stabilized Femoral Component, Size 5 2. Depuy Attune Cementless Rotating Platform Tibial Component, Size 4 3. Depuy Attune 5x10 PS/RP Poly 4. Depuy Attune Patellar Component, Size 35 Indications: I have seen Homero in clinic for symptoms of knee arthritis, confirmed with radiographic findings. She has exhausted nonoperative methods and was having significant limitations in daily function and desired better function and less pain. I discussed the technical details of a knee replacement. I explained the risks of the procedure to include, but not limited to, bleeding, infection, pain, stiffness, fracture, damage to nerves and vessels, damage to muscles and tendons, loosening, need for repeat procedure, blood clot and cardiopulmonary demise. Despite these risks, [NAME] elected to proceed. Findings: There was significant signs of arthritis throughout the knee. Procedure Description: Homero was greeted in the preoperative holding area where the correct side was identified and marked. The consent was reviewed with the patient and signed. The history and physical was updated. All questions were answered. Preoperative medications were administered: Acetaminophen 1000mg, Celebrex 400mg, and Gabapentin 300mg. An adductor canal block was then administered by the anesthesia team in the PACU. She was taken back to the operating room. A spinal anesthestic was then administered. The patient was placed into the supine position on the operating room table. A nonsterile tourniquet was placed high onto the leg but only used for cementing. Posts were placed for positioning during the procedure. All bony prominences were well padded. Prophylactic antibiotics in the form of Cefazolin were administered. 1g of Tranxemic Acid was given intravenously within 30 minutes of incision. The right leg was then prepped with Chloraprep and draped in a standard fashion with impervious stockinette. A second prep with Chloraprep was performed prior to application of Iodine impregnated skin protection. A timeout to confirm correct identity, side and site, procedure, allergies, anesthesia, and medical concerns was performed. With the knee in some flexion, a midline incision was made overlying the knee. Full thickness skin flaps were raised once the extensor mechanism was encountered. These were raised medially and laterally. Any bleeding was controlled with electrocautery. Once the extensor mechanism was fully exposed, a medial parapatellar arthrotomy was performed in a flexed position. All bleeding from the arthrotomy and the geniculate arteries was coagulated. A medial subperiosteal peel was performed with electrocautery to the midcoronal plane. Due to the significant varus deformity the entire medial tibial plateau was exposed. The fat pad was removed while keeping the patellar tendon protected. The anterior distal femur synovium was removed for later visualization. The ACL and PCL were resected and the anterior horn of the lateral meniscus was transected. The knee was then flexed with the patella everted. Large osteophytes from the tibia were removed. Large osteophytes from the femur were removed. There was notable osteophytes throughout and deformity of the medial tibia. Using a step drill, and based on preoperative templating, the femoral canal was entered. This was done with a step drill without any difficulty. The intramedullary distal femoral cut guide was inserted, set to a 4 degree valgus cut and 10mm cut thickness. There was some hypoplasia of the lateral femoral condyle and any remnant cartilage of the medial femoral condyle was removed for appropriate thickness. The distal femoral cut guide was then held in position and pinned. With the soft tissues protected, the distal cut was performed. This was passed over a few times to ensure a planar cut. I then turned attention to the tibia. The extramedullary guide was placed onto the leg. The distal aspect was slid medial to adjust for position of center of ankle and stay in line with shaft of the tibia. Approximately 3-5 degrees of posterior slope was kept in the proximal cutting guide. The center of the guide was aligned with the PCL. The stylus was used to assess cut thickness. The medial side, most involved side, was set for a 2mm cut. This was then held in position and pinned into place with 2 additional pins and a cross pin for stability. The medial and lateral collateral ligaments were protected and the cut was performed. With this completed, it was assessed and noted to be of appropriate dimensions. The guide was removed. A spacer block was inserted and the knee was brought into extension. The 10mm spacer block provided full extension, without hyperextension and with stability of both the medial and lateral collateral ligaments was assessed. The pins from the femur and the tibia were then removed. The distal femur was then sized. The anterior stylus was placed onto the lateral ridge of the anterior femur. This indicated a size 5 femur. The external rotation of the guide was adjusted to 5 degrees to match the epicondylar axis, perpendicular to Chariton?s line. The 4-in-1 cutting guide was the placed. The posterior medial femur cut was evaluated and appeared of good thickness. The spacer block was inserted underneath the cutting guide and stability was confirmed in 90 degrees of flexion. An leonarda wing was used to confirm appropriate position of the anterior cut to avoid notching. This cutting guide was ensured to be flush on the cut surface and then pinned into place with headed pins. While protecting the soft tissues, quad tendon, and collateral ligaments, the anterior and posterior cuts were performed with a saw. The central two pins were removed and the posterior and anterior chamfers were cut next. The notch-cutting guide was placed. This was pinned to lateralize the femoral component as much as possible while keeping it flush on the cut surface. This was then pinned into position. A reciprocating saw was used to make the notch cut. A rasp smoothed the cut surfaces. The medial and lateral menisci were removed. Large posterior osteophytes were removed with a curved osteotome. Multiple loose bodies were retrieved from the posterior knee. A trial femoral component was then inserted, impacted down to the cut surfaces, and the lug holes were drilled. A provisional trial tibial component was placed and the knee was brought through range of motion. There was noted to be excellent extension and flexion. There was no significant instability. The patella was tracking without thumbs. A size 10mm polyethylene component provided the best range of motion and stability with less than 2mm gapping with medial and lateral stress and full extension without significant hyperextension. The tibial cut surface was fully exposed. The tibia was then sized as a 4. The tibia had been previously marked during trialing to correspond to the center of the tibial component to help with rotation. The trial was aligned to this osto, approximately rotated to the medial 1/3rd of the tibial tubercle. The trial was pinned into place. The tibia was prepared with a reamer and a keel punch and lug holes. The knee was then brought into extension and the patella was measured as 25mm. Using the patellar clamp and cut guide, this was resected to a flat surface with at least 13mm of thickness remaining. The size 35 patella fit the best. This was oriented and then clamped into position. The lugs were drilled. The trial components were removed. The final components were opened on the back table. The periosteal and capsular tissues, especially posteriorly, around the knee were then systematically injected with a periarticular cocktail consisting of 50cc 0.25% Marcaine, 30mg Ketorolac, 20cc of Exparal and 50cc of injectable saline. The knee was thoroughly irrigated with a pulse lavage and dried. Irrisept was also used to irrigate the tissues. On the back table, with the implants opened, the cement was mixed. One batch of high viscosity cement was prepared with vacuum assistance. After the cement was ready a small amount was placed on the cut surface of the patella and the patellar button was clamped into position and held. While the cement was hardening, the cementless knee components were placed. Starting with the tibial component, the tibia was subluxed anteriorly and the lug holes of the component were lined up. The tibia was then impacted with an impactor and mallet until the tibial component was in contact with the tibia. Then, the femoral component was inserted. The lug holes were aligned and the component was impacted into position. The polyethylene was then inserted. The knee was reduced and irrigated with Irrisept chlorhexadine solution. This was allowed to sit in the knee for 3 minutes. After the cement had finally cured, approximately 15min, the clamp was removed from the patella and the knee was taken through range of motion. The patella was tracking with a no-thumbs technique. The capsule was then reapproximated with a No. 1 Vicryl at multiple locations. The capsule was finally closed with a No. 2 Stratafix, barbed suture. The second dosing of 1g TXA was started. Deep tissues were then reapproximated with 0 Vicryl and 2-0 Vicryl. The skin was closed with a running 3-0 Monocryl in a subcuticular fashion. This was reinforced with skin glue. A Mepilex silver dressing was applied along with a [id number] ILANA wrap. A CryoCuff was applied. Homero was transferred to the hospital bed without difficulty an suffering no apparent complication. Homero has a good prognosis. Physical therapy will start today and without restrictions, weight-bearing as tolerated. Aspirin 81mg BID will be used for DVT prophylaxis.
--- NOTE | 2020-12-15 10:17 | W.ANESPOSTOP ---
Postoperative Evaluation Date, Time and Location Date Performed: 12/15/20 Time Performed: 10:17 Patient Location: PACU Vital Signs Most Recent Imported Vital Signs: Most Recent Vital Signs Temp Pulse Resp BP Pulse Ox 36.4 C L 52 L 17 166/90 H 98 12/15/20 10:15 12/15/20 10:15 12/15/20 10:15 12/15/20 10:15 12/15/20 10:15 Pain Score Most Recent Pain Score: Most Recent Pain Score Pain Level 0 12/15/20 10:15 Assessment Mental Status: Awake (Alert & Oriented to Patient Baseline) Airway and Respiratory Function: Patent airway with normal (patient baseline) respiratory exam Cardiovascular Function: Hemodynamically Stable Hydration Status: Adequately Hydrated Nausea & Vomiting: No Nausea or Vomiting Pain: Pt. Denies Any Pain Peripheral Nerve Block: Regional nerve block not resolved at time of post operative discharge
--- NOTE | 2020-12-15 14:33 | IN_ITS ---
Date of service: 12/15/20 Time of Service: 11:00 PT Notes Visit Reasons: Right TKA Inpatient Physical Therapy Evaluation Date: 12/15/2020 Referring Doctor: Sascha Daly PT Orders: PT CONSULT: Status post right TKA Precautions: Fall, standard Patient Profile/Admitting Diagnosis: Patient with history of right knee OA, now postop day 0 status post right TKA. PMHX: DJD (degenerative joint disease) Essential hypertension Hyperlipidemia Insomnia Primary osteoarthritis of left hip Injection under fluoroscopy: 05/22/2018 Primary osteoarthritis of right hip Primary osteoarthritis of right knee Surgical History (Updated 01/30/20 @ 11:31 by Los Ahuja RN) S/P colonoscopy Status post left hip replacement Tonsillectomy and adenoidectomy Social History/Home Situation: Patient lives with her in a home with 12 steps to enter and bilateral rails. States that someone gave her a Rollator walker, which she plans to utilize as she recovers. Typically is fully independent. Equipment Owned/DME: rollator walker Subjective: Patient states that she is feeling well. Denies knee pain. States that she has had years of pain and instability prior to her surgery. She was no longer able to reciprocally climb stairs or walk long distances. Objective: General Observation: Resting in bed with no lines. Cryo/Cuff in place to right knee. Mental Status: A and O x3 Pain: 0/10 Vital Signs: Monitored by nursing ROM: Right Upper Extremity: WFL Left Upper Extremity: WFL Right Lower Extremity: Patient functionally demonstrates right knee range of motion -5 degrees to 95 degrees Left Lower Extremity: WFL Strength: Right Upper Extremity: WFL Left Upper Extremity: WFL Right Lower Extremity: Patient demonstrates an approximately 30 degree extension lag with SLR. She is able to get visible quad activation with quadriceps setting activities. Left Lower Extremity: WFL Sensation: Intact distally Bed Mobility/Transfers: Supine?sit: Independent Sit?stand: Independent Stand?sit: Independent with cues Gait: Patient ambulates 50 feet x 2 with FW W, CGA. She demonstrates intermittent buckling of the right knee, and relies heavily on upper extremity support to FW W. Deferred on attempted ambulation with 4 WW due to deficits in quad strength. Balance: Static Sitting: Normal Dynamic Sitting: Normal Static Standing: Fair Dynamic Standing: Fair Special Tests: Mobility Limitations Standardized Measure [facility] 6 clicks Basic Mobility Inpatient Short Form: Raw Score: 22 CMS Score: 21% deficit Informed Consent/Education: Patient instructed in purpose of PT consult and plan of care. She was instructed in open chain quad setting activities, and received gait and transfer training. Assessment: Patient is a 60 year old female referred to physical therapy services with the diagnosis of right knee OA, postop day 0 status post right TKA. Patient presents with clinical signs and symptoms consistent with postoperative status, as demonstrated by the following impairment level findings: 1. Decreased right knee range of motion 2. Decreased functional quad strength with significant extension lag and functional instability 3. Gait impairments 4. Decreased activity tolerance Impairments are contributing to the following functional limitations: 1. Decreased tolerance to household distance ambulation 2. Unable to reciprocally manage stairs 3. Gait impairments Patient is assessed as Moderate [id number] complexity based on the following: History: Patient is a 60-year-old female with history of right knee OA, presenting on postop day 0 status post right TKA. PT consultation ordered for gait, stair, transfer training. Posttreatment, patient demonstrates significantly improved safety and independence, and is appropriate for discharge home once medically appropriate. Patient will require FWW due to significant quad weakness and gait impairments, as she is not safe to utilize 4WW at this time. Examination: functional limitations as noted above Presentation: evolving Decision Making: moderate complexity Plan of Care/Treatment Plan: Discharge from PT in acute care setting. DISCHARGE RECOMMENDATIONS: home with FWW TREATMENT CODE/TIME: 11:00-11:25 Ingrid Gonzalez, PT, DPT [facility]
== END 2020-12-15 12:08 | disposition home or self-care (01) ==
PROVIDERS: PCP Family Medicine; Visit Provider Student in an Organized Health Care Education/Training Program
PROC: (CPT 27447; principal; 2020-12-15 07:30)
DX: M17.11 Unilateral primary osteoarthritis, right knee (principal); E78.5 Hyperlipidemia, unspecified; I10 Essential (primary) hypertension; G47.00 Insomnia, unspecified
CPT/HCPCS: 27447; 76942; 97162; J0690; J1100; J1885; J2001; J2250; J2405; J2704

== ENCOUNTER 2020-12-31 11:12 | Outpatient (CLI) | payer MEDICAID, SELFPAY ==
--- NOTE | 2020-12-31 10:45 | DI.RAD_ITS ---
Exam(s) XR KNEE RT 1V XR STANDING ALIGNMENT EXAM: XR STANDING ALIGNMENT CLINICAL HISTORY: 1st post op R TKA. TECHNIQUE: 2D digital imaging was performed. Standing AP views were performed from the pelvis throu gh the ankles. COMPARISON: CR XR KNEE RT 1V from 12/04/2020 CR XR KNEE RT 1V from 12/04/2020 CR XR KNEE RT 1V from 12/31/2020 CR XR KNEE RT 1V from 12/31/2020 FINDINGS: BONES: No acute fracture is present. No bony destructive lesion is seen. No overall leg length discr epancy is visible with the right femoral head and right iliac wing projecting superior to the left. JOINTS: Knees: Right knee prosthesis has been placed since the previous exam. The alignment appears satisfactory. No abnormal bony lucencies are seen.. The ankle joints are unremarkable. There is a left hip prosthesis. An overall SOFT TISSUE: Normal. IMPRESSION: Right knee prosthesis. Left hip prosthesis. Mild overall leg length discrepancy. DATA REPOSITORY: RADIATION DOSE DELIVERED:
== END 2020-12-31 11:13 | disposition home or self-care (01) ==
LOC: DIORS 13:28
PROVIDERS: PCP Family Medicine; Referring Provider Family Medicine; Visit Provider Physician Assistant Surgical
DX: Z96.651 Presence of right artificial knee joint (principal); Z96.642 Presence of left artificial hip joint; M21.751 Unequal limb length (acquired), right femur
CPT/HCPCS: 73560; 77073

== ENCOUNTER 2022-01-06 02:42 | Outpatient (CLI) | payer MEDICAID, SELFPAY ==
[2022-01-06 11:23] LABS: Calculated LDL 74 mg/dL (<100); Cholesterol 149 mg/dL (<200); HDL Cholesterol 70 mg/dL (40-60); Triglyceride 28 mg/dL (<150)
== END 2022-01-06 02:43 | disposition home or self-care (01) ==
LOC: LBO 02:42
PROVIDERS: PCP Family Medicine; Visit Provider Family Medicine
DX: E78.5 Hyperlipidemia, unspecified (principal)
CPT/HCPCS: 36415; 80061

== ENCOUNTER 2022-01-11 10:53 | Outpatient (REF) | payer MEDICAID, SELFPAY ==
--- NOTE | 2022-01-11 08:45 | PAPFT_PTH ---
PATIENT: Homero Henson LOC: [facility] U#:[id number] AGE/SX: 61/F ROOM: RE01/11/[address]: Lexa Larios DO : 1960 BED: DIS: 01/11/2022 SPEC #: [id number] RECD: 01/11/22 18:34 STATUS: TORRES REFrancesca #: [id number] HANY: 01/11/22 08:[address]: Lexa Larios DEPT: [facility] Cytology RECD BY: Ania Hatch Tissues: 1 - CX/ENDOCX FOR PAP SMEARS Procedures: PAP THIN PREP/UVM Screening Comments: [id number]
== END 2022-01-11 10:54 | disposition home or self-care (01) ==
LOC: LBN 10:53
PROVIDERS: PCP Family Medicine; Referring Provider Family Medicine; Visit Provider Family Medicine
DX: Z11.51 Encounter for screening for human papillomavirus (HPV) (principal); Z12.4 Encounter for screening for malignant neoplasm of cervix
CPT/HCPCS: 88142

== ENCOUNTER → 2022-01-20 01:51 | Outpatient (CLI) | payer MEDICAID, SELFPAY ==
--- NOTE | 2022-01-20 08:30 | DI.MAMMO_ITS ---
Exam(s) MAMMO SCREENING EXAM: MAMMO SCREENING CLINICAL HISTORY: screening, Z12.39 TECHNIQUE: Bilateral full field digital CC and MLO mammographic images were obtained with 3D tomosyn thesis and utilizing computer aided detection (CAD). COMPARISON: Available for comparison. FINDINGS: Masses/Architectural Distortion: There is a new round ovoid density in the inferior central left rayne st on the MLO view. It lies 6 cm from the nipple. Microcalcifications: No suspicious pleomorphic-type are seen. Skin Thickening/Nipple Retraction: None. IMPRESSION: 1. New ovoid density in the inferior central left breast on the MLO view. 2. This area should be further evaluated with a spot compression view. Ultrasound may be indicated a t that time. BI-RADS Category 0 - Assessment Incomplete: Need additional imaging evaluation Breast Density - Category C - Heterogeneously dense Breast density category C or D implies that the patient has dense breast tissue. Dense breast tissue is very common and is not abnormal but dense breast tissue can make it harder to find cancer on a ma mmogram. Also, dense breast tissue may increase their breast cancer risk. This information about the result of the mammogram report was provided to the patient to raise their awareness. Use this report when you speak with the patient about their risks for breast cancer, which includes their family hist ory. At that time, you may recommend for more screening tests (Ultrasound or MRI) as they might be us eful based on their risk. A negative radiographic report should not delay biopsy if a dominant or clinically suspicious mass is present. Up to ten percent of cancers are not identified on mammography. A negative report may reinforce clinical impression. Adenosis and dense breasts may obscure an underlying neoplasm. False positive reports average 6 to 10%. Patient will receive a letter notifying them of these results.
== END ==
PROVIDERS: PCP Family Medicine; Visit Provider Family Medicine
DX: Z12.31 Encounter for screening mammogram for malignant neoplasm of breast (principal); R92.8 Other abnormal and inconclusive findings on diagnostic imaging of breast
CPT/HCPCS: 77063; 77067

== ENCOUNTER → 2022-01-25 01:59 | Outpatient (CLI) | payer MEDICAID, SELFPAY ==
--- NOTE | 2022-01-25 15:00 | DI.US_ITS ---
Exam(s) MG MAMMO SCREEN CALL BACK UNI US BREAST LT LIMITED EXAM: MG MAMMO SCREEN CALL BACK UNI and U/S breast LT limited CLINICAL HISTORY: F/U ABNL MAMMO, NEW OVOID DENSITY IN CENTRAL LT BREAST, MLO VIEW. TECHNIQUE: Craniocaudal and mediolateral oblique Full Field Digital Mammography views of the left br east with Computer Aided Diagnosis followed by Tomosynthesis and left breast ultrasound. COMPARISON: Priors available for comparison. FINDINGS: Mammography/Tomosynthesis: Masses/Architectural Distortion: A tiny nodular density is less prominent on the current examination is. No suspicious masses or areas of architectural distortion are present. Microcalcifictions: No suspicious pleomorphic-type are seen. Skin Thickening/Nipple Retraction: None. Limited left breast US: Echotexture: Normal appearance of the glandular tissue. Shadowing: No suspicious foci. Cyst: None. Solid lesions: None seen. Ductal dilation: None. IMPRESSION: 1. No evidence of malignancy is noted. 2. A six-month follow-up left mammogram is recommended for re-evaluation. 3. The findings were discussed with the patient on the date of the examination. BI-RADS Category 3 - 6 month - Probably Benign Finding: Recommend follow-up imaging in 6 months Breast Density - Category C - Heterogeneously dense Breast density Category C or D implies that the patient has dense breast tissue. Dense breast tissue can make it harder to find cancer on a mammogram. Dense breast tissue is also associated with an incr eased risk of breast cancer. This information about the result of the mammogram report was provided to the patient to raise their awareness. Use this report when you speak with the patient about their risks for breast cancer, which includes their family history. At that time, you may recommend additional screening tests (Ultrasoun d or MRI) as these tests may add significant information. A negative radiographic report should not delay biopsy if a dominant or clinically suspicious mass is present. Up to ten percent of cancers are not identified on mammography. A negative report may reinforce clinical impression. Adenosis and dense breasts may obscure an underlying neoplasm. False positive reports average 6 to 10%. Patient will receive a letter notifying them of these results.
== END ==
PROVIDERS: PCP Family Medicine; Visit Provider Family Medicine
DX: Z12.31 Encounter for screening mammogram for malignant neoplasm of breast (principal); R92.8 Other abnormal and inconclusive findings on diagnostic imaging of breast
CPT/HCPCS: 76642; 77063; 77067

== ENCOUNTER 2024-03-11 03:23 | Outpatient (CLI) | payer BC, SELFPAY ==
--- NOTE | 2024-03-11 09:00 | DI.MAMMO_ITS ---
Exam(s) MAMMO SCREENING EXAM: MAMMO SCREENING CLINICAL HISTORY: screening, Z12.39. TECHNIQUE: Bilateral full field digital CC and MLO mammographic images were obtained with 3D tomosyn thesis and utilizing computer aided detection (CAD). COMPARISON: Prior mammograms were reviewed. FINDINGS: There has been no significant change in the appearance and distribution of the fibroglandular tissue. Previously described small asymmetric density inferiorly in the breast the December 2021 is actually less evident on the present study, further evidence that it was benign finding. There are no new spiculated masses nor new malignant appearing microcalcification groups. There is no significant architectural distortion nor skin thickening-retraction. IMPRESSION: No radiographic evidence of malignancy. BI-RADS Category 1 - Negative Breast Density - Category B - Scattered areas of fibroglandular density Breast density Category C or D implies that the patient has dense breast tissue. Dense breast tissue can make it harder to find cancer on a mammogram. Dense breast tissue is also associated with an incr eased risk of breast cancer. This information about the result of the mammogram report was provided to the patient to raise their awareness. Use this report when you speak with the patient about their risks for breast cancer, which includes their family history. At that time, you may recommend additional screening tests (Ultrasoun d or MRI) as these tests may add significant information. A negative radiographic report should not delay biopsy if a dominant or clinically suspicious mass is present. Up to ten percent of cancers are not identified on mammography. A negative report may reinforce clinical impression. Adenosis and dense breasts may obscure an underlying neoplasm. False positive reports average 6 to 10%. Patient will receive a letter notifying them of these results.
== END 2024-03-11 03:43 ==
LOC: DI 03:23
PROVIDERS: PCP Family Medicine; Visit Provider Family Medicine
DX: Z12.31 Encounter for screening mammogram for malignant neoplasm of breast (principal)
CPT/HCPCS: 77063; 77067

== ENCOUNTER 2025-03-07 14:59 | Outpatient (CLI) | payer BC, SELFPAY ==
[2025-03-07 15:53] LABS: C-Reactive Protein 1.19 mg/dL (<or=0.5)
[2025-03-10 11:31] LABS: Lyme Ab w Rflx to Lyme Confirm Negative (Negative)
[2025-03-11 00:47] LABS: B. miyamotoi PCR Negative (Negative); Babesia divergens/MO-1 Negative (Negative); Ehrlichia muris eauclairensis Negative (Negative)
== END 2025-03-07 15:00 | disposition home or self-care (01) ==
LOC: LBO 15:00
PROVIDERS: PCP Family Medicine; Visit Provider Family Medicine
DX: M06.9 Rheumatoid arthritis, unspecified (principal)
CPT/HCPCS: 36415; 86200; 87798; 86038; 86140; 86431; 86618